=== PATIENT | female | born 1995 ===

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

== ENCOUNTER 2018-01-31 12:20 | Emergency (ER) | payer OTHER ==
[2018-01-31 12:47] VITALS: BP 105/83
--- NOTE | 2018-01-31 13:28 | RAD ---
Indication: 1 week upper back pain without proceeding injury. Comparison: No relevant prior exams available on the [facility] for comparison. Technique: AP and lateral views thoracic spine. Report: Normal thoracic spine alignment. No fracture or focal osseous lesion evident. Preserved disc spaces. Unremarkable paravertebral soft tissue contours. IMPRESSION: Negative radiographic exam of the thoracic spine.
--- NOTE | 2018-01-31 13:36 | ED ---
Back Pain - HPI Summary HPI Summary: 22 yr old with mid thoracic spine back pain. Onset almost a week ago and without anything specific as the cause per the patient. She has not had fever, chills, coughing, SOB or pain when breathing. She has not had numbness, weakness in legs. No bowel or bladder incontinence. Her pain is moderate and it is worse with change in position. Pain radiates up the T spine. No other complaints. She had episode of lower back pain a couple years ago treated with nsaids and muscle relaxants. - History of Current Complaint Chief Complaint: UCBackPain Stated Complaint: BACK PAIN Time Seen by Provider: 01/31/18 12:59 Hx Last Menstrual Period: 01/03/18 Pain Intensity: 4 - Allergies/Home Medications Allergies/Adverse Reactions: Allergies Allergy/AdvReac Type Severity Reaction Status Date / Time No Known Allergies Allergy Verified 01/31/18 12:40 PMH/Surg Hx/FS Hx/Imm Hx Endocrine/Hematology History: Denies: Hx Diabetes Respiratory History: Denies: Hx Chronic Obstructive Pulmonary Disease (COPD) Psychiatric History: Reports: Hx Depression - when taking OCP in the past but no longer Infectious Disease History: No Infectious Disease History: Denies: Traveled Outside the [place] in Last 30 Days - Family History Known Family History: Positive: None Negative: Cardiac Disease - Social History Occupation: Student Lives: Dormitory/Roommates Alcohol Use: Weekly Alcohol Amount: 27 Substance Use Type: Reports: None Smoking Status (MU): Never Smoked Tobacco Review of Systems Constitutional: Negative Negative: Chest Pain Negative: Shortness Of Breath, Cough Positive: Other - back pain Negative: Weakness, Paresthesia, Numbness All Other Systems Reviewed And Are Negative: Yes Physical Exam Triage Information Reviewed: Yes Vital Signs On Initial Exam: Initial Vitals Temp Pulse Resp BP Pulse Ox 97.9 F 72 16 105/83 100 01/31/18 12:41 01/31/18 12:41 01/31/18 12:41 01/31/18 12:41 01/31/18 12:41 Vital Signs Reviewed: Yes Appearance: Positive: Well-Appearing, No Pain Distress Skin: Positive: Warm, Skin Color Reflects Adequate Perfusion Head/Face: Positive: Normal Head/Face Inspection Eyes: Positive: EOMI ENT: Positive: Normal ENT inspection Neck: Positive: Nontender Respiratory/Lung Sounds: Positive: Clear to Auscultation, Breath Sounds Present Cardiovascular: Positive: RRR. Negative: Murmur Abdomen Description: Positive: Nontender Musculoskeletal: Positive: Strength/ROM Intact, Other - no midline tenderness of CTLS spine. Neurological: Positive: Sensory/Motor Intact, Alert, Oriented to Person Place, Time, CN Intact II-III, Normal Gait, Speech Normal Psychiatric: Positive: Normal - Gibson Coma Scale Best Eye Response: 4 - Spontaneous Best Motor Response: 6 - Obeys Commands Best Verbal Response: 5 - Oriented Coma Scale Total: 15 Diagnostics - Vital Signs Vital Signs Temp Pulse Resp BP Pulse Ox 01/31/18 12:41 97.9 F 72 16 105/83 100 - Laboratory Lab Statement: Any lab studies that have been ordered have been reviewed, and results considered in the medical decision making process. Back Pain Course/Dx - Course Course Of Treatment: 22 yr old with back pain. Rx Nsaids and flexeril. - Diagnoses Provider Diagnoses: Back pain Discharge - Sign-Out/Discharge Documenting (check all that apply): Discharge/Admit/Transfer - Discharge Plan Condition: Good Disposition: HOME Prescriptions: Cyclobenzaprine TAB* [Flexeril 10 MG TAB*] 10 mg PO BID PRN #14 tab PRN Reason: Spasms Ibuprofen TAB* [Motrin TAB* 600 MG] 600 mg PO Q6H PRN #20 tab PRN Reason: Pain Patient Education Materials: Back Pain (ED) Referrals: No Primary Care Phys,NOPCP [Primary Care Provider] - 1 Week [facility] [Outside] - 1 Week - Billing Disposition and Condition Condition: GOOD Disposition: HOME
== END 2018-01-31 13:47 | disposition home or self-care (01) ==
LOC: UCCORT 12:20
DX: M54.6 Pain in thoracic spine (principal)
CPT/HCPCS: 72070; 99212; G0463